=== PATIENT | female | born 1940 | race Caucasian/White ===

== ENCOUNTER 2021-09-30 11:39 | Emergency (ER) | payer MEDICARE, OTHER ==
[2021-09-30 12:01] LABS: HEMOGLOBIN 11.5 gm/dl (12.3-15.3); RED BLOOD COUNT 4.38 M/UL (4.00-5.10); WHITE BLOOD COUNT 6.2 K/UL (4.5-11.0)
[2021-09-30 12:40] LABS: BUN/CREATININE RATIO 20 (0-10)
== END 2021-09-30 16:50 | disposition home or self-care (01) ==
LOC: ER1 11:39
PROVIDERS: Family Medicine
DX: I95.9 Hypotension, unspecified (principal); J96.11 Chronic respiratory failure with hypoxia; J44.9 Chronic obstructive pulmonary disease, unspecified; Z88.8 Allergy status to other drugs, medicaments and biological substances; Z88.6 Allergy status to analgesic agent; Z95.5 Presence of coronary angioplasty implant and graft; Z99.81 Dependence on supplemental oxygen
CPT/HCPCS: 36600; 71045; 80053; 81001; 82550; 82553; 82803; 83605; 83690; 83735; 83880; 84439; 84443; 84484; 85025; 85610; 93005; 96374; 99285; J2405

== ENCOUNTER → 2021-09-30 | Outpatient (CLI) | payer MEDICARE, OTHER | LOC: US 08:30 → ECHO 09:00 → NM 10:00 | DX: I25.10 Atherosclerotic heart disease of native coronary artery without angina pectoris (principal); R07.9 Chest pain, unspecified; R42 Dizziness and giddiness | CPT/HCPCS: ECHO; 78452; 93017; 93306; 93880; A9502; J2785 ==